=== PATIENT | male | born 1965 | race Caucasian/White ===

== ENCOUNTER 2019-10-05 06:20 | Emergency (ER) | payer OTHER ==
[2019-10-05 06:26] VITALS: BP 153/91; PULSE 80; TEMP 98.1; BMI 24.3
[2019-10-05] MEDS ORDERED: DIPHTH,PERTUSS(ACELL),TET 0.5 ML DISP.SYRIN IM ONE ×2 (06:31→06:46)
--- NOTE | 2019-10-05 06:33 | PDOC ---
Attending Attestation - Resident Resident Name: NeyAndrésTaj - ED Attending Attestation I have performed the following: I have examined & evaluated the patient, The case was reviewed & discussed with the resident, I agree w/resident's findings & plan - HPI HPI: 10/05/19 06:31 see resident hpi - Physicial Exam PE: 10/05/19 06:32 see resident exam - Medical Decision Making 10/05/19 06:32 54-year-old male status post traumatic amputation of the distal left fourth finger with a circular saw We will transfer to trauma center for hand consultation X-rays, tetanus and wound cleansing
--- NOTE | 2019-10-05 06:42 | PDOC ---
History of Present Illness - General Chief Complaint: Injury Stated Complaint: INJURY,FINGER Time Seen by Provider: 10/05/19 06:29 - History of Present Illness Initial Comments: 10/05/19 06:38 54 yo M with no sig pmh, left hand dominant, who p/w left 4th distal phalanx amputation. Patient reports left distal ring finger amputation with circular saw at approximately 6:00 AM this morning. Denies other injury sustained. Does not recall prior tetanus. Not on AC. Patient has detached fingertip present at bedside. Patient denies OLIVARES, vision change, palpitations, cough, wheezing, orthopena, PND, leg swelling/pain, N/V, F,C, CP, SOB, urinary complaints, hematuria, BPR, abdominal pain, diarrhea, constipation, lightheadedness, weakness, sensory changes. PMHx: as noted above ROS: as noted SHx: Denies Etoh, IVDA, tobacco use Allergies: NKDA Past History - Past Medical History Allergies/Adverse Reactions: Allergies Allergy/AdvReac Type Severity Reaction Status Date / Time No Known Allergies Allergy Verified 10/05/19 06:26 COPD: No - Immunization History Td Vaccination: Yes - Psycho Social/Smoking Cessation Hx Smoking History: Never smoked Review of Systems - Review of Systems Comments:: 10/05/19 06:42 GENERAL/CONSTITUTIONAL: No fever or chills. No weakness. HEAD, EYES, EARS, NOSE AND THROAT: No change in vision. No ear pain or discharge. No sore throat. CARDIOVASCULAR: No chest pain or shortness of breath RESPIRATORY: No cough, wheezing, or hemoptysis. GASTROINTESTINAL: No nausea, vomiting, diarrhea or constipation. GENITOURINARY: No dysuria, frequency, or change in urination. MUSCULOSKELETAL: + left 4th digit amputation. No joint or muscle swelling or pain. No neck or back pain. SKIN: No rash NEUROLOGIC: No headache, vertigo, loss of consciousness, or change in strength/sensation. ENDOCRINE: No increased thirst. No abnormal weight change HEMATOLOGIC/LYMPHATIC: No anemia, easy bleeding, or history of blood clots. ALLERGIC/IMMUNOLOGIC: No hives or skin allergy. *Physical Exam - Vital Signs Last Vital Signs Temp Pulse Resp BP Pulse Ox 98.1 F 80 18 153/91 97 10/05/19 06:24 10/05/19 06:24 10/05/19 06:24 10/05/19 06:24 10/05/19 06:24 - Physical Exam 10/05/19 06:43 GENERAL: Awake, alert, and fully oriented, in no acute distress HEAD: No signs of trauma, normocephalic, atraumatic EYES: PERRLA, EOMI, sclera anicteric, conjunctiva clear ENT: Auricles normal inspection, hearing grossly normal, nares patent, oropharynx clear without exudates. Moist mucosa NECK: Normal ROM, supple, no lymphadenopathy, JVD, or masses LUNGS: No distress, speaks full sentences, clear to auscultation bilaterally HEART: Regular rate and rhythm, normal S1 and S2, no murmurs, rubs or gallops, peripheral pulses normal and equal bilaterally. ABDOMEN: Soft, nontender, normoactive bowel sounds. No guarding, no rebound. No masses EXTREMITIES : + Left distal 4th phalanx amputation distal to DIP. Absent visualized retained foreign body or debris. strength intact proximal to DIP. Otherwise Normal inspection, Normal range of motion, no edema. No clubbing or cyanosis. Palpable and symmetric 2+ peripheral pulses throughout. NEUROLOGICAL: Cranial nerves II through XII grossly intact. Normal speech, normal gait, no focal sensorimotor deficits SKIN: Warm, Dry, normal turgor, no rashes or lesions noted Medical Decision Making - Medical Decision Making 10/05/19 06:42 54 yo M with no sig pmh, left hand dominant, who p/w left 4th distal phalanx amputation. Vitals wnl, AF, A&Ox3. Physical exam notable for + Left distal 4th phalanx amputation distal to DIP. Absent visualized retained foreign body or debris. strength intact proximal to DIP. Otherwise Normal inspection, Normal range of motion, no edema. No clubbing or cyanosis. Palpable and symmetric 2+ peripheral pulses throughout. Bleeding controlled, bone not exposed. Absent crush injury. LUE neurovasculalry intact. Patient likely to be transferred to outside facility for possible reimplantation vs. revision amputation, as deter mined by hand/plastic surgery consult services. Will obtain xray provide tetanus ppx.,and analgesic control. Ed Course: 10/05/19 06:47 Boostrix, Ancef, Morphine Patient endorsed to Dr. Castaneda at [facility] Patient agrees/consents to transfer to [facility] Discharge - Discharge Information Problems reviewed: Yes Clinical Impression/Diagnosis: Traumatic amputation of left ring finger Amputation finger Qualifiers: Encounter type: initial encounter Qualified Code(s): S68.119A - Complete traumatic metacarpophalangeal amputation of unspecified finger, initial encounter Condition: Stable Disposition: TRANSFER ACUTE CARE/OTHER HOSP - Follow up/Referral - Patient Discharge Instructions - Post Discharge Activity
[2019-10-05] MEDS ORDERED: CEFAZOLIN 1 GM in DEXTROSE 5%-WATER - 50 ML IVPB ONE (06:45)
[2019-10-05] MEDS ORDERED: CEFAZOLIN 1 GM/D5W 1 GM/50 ML BAG ONE (06:46)
[2019-10-05] MEDS ORDERED: ACETAMINOPHEN 1000 MG/100 ML VIAL (NON FORMULARY) IVPB ONE (06:48)
[2019-10-05] MEDS ORDERED: morphine CARPU-JECT 2 MG/1 ML DISP.SYRIN SQ ONE (06:51)
[2019-10-05] MEDS ORDERED: MORPHINE SULFATE 2 MG/ML VIAL ONE (06:53)
[2019-10-05 07:45] LABS: BASO % 0.8 % (0-2.0); EOS % 1.4 % (0-4.5); HEMATOCRIT 43.8 % (35.4-49); HEMOGLOBIN 15.4 GM/dL (11.7-16.9); LYMPH % 25.3 % (8-40); MCH 30.9 pg (25.7-33.7); MCHC 35.2 g/dl (32.0-35.9); MEAN PLT VOLUME 8.9 fl (7.5-11.1); MONO % 9.2 % (3.8-10.2); NEUT % 63.3 % (42.8-82.8); PLATELET COUNT 227 K/MM3 (134-434); RBC 4.98 M/mm3 (4.00-5.60); RDW 12.8 % (11.9-15.9); WHITE BLOOD COUNT 6.2 K/mm3 (4.0-10.0)
[2019-10-05 08:02] LABS: BILIRUBIN,TOTAL 0.8 mg/dL (0.2-1); BLOOD UREA NITROGEN 17.5 mg/dL (7-18); CALCIUM 9.7 mg/dL (8.5-10.1); TOT PROT 7.3 g/dl (6.4-8.2)
[2019-10-05 08:19] LABS: INR 0.93 (0.83-1.09)
== END 2019-10-05 07:47 | disposition short-term general hospital (02) ==
LOC: JER 06:20
PROC: 3E0234Z Introduction of Serum, Toxoid and Vaccine into Muscle, Percutaneous Approach (ICD-10-PCS; principal; 2019-10-05)
PROC: 3E03329 Introduction of Other Anti-infective into Peripheral Vein, Percutaneous Approach (ICD-10-PCS; 2019-10-05)
PROC: 3E023NZ Introduction of Analgesics, Hypnotics, Sedatives into Muscle, Percutaneous Approach (ICD-10-PCS; 2019-10-05)
DX: S68.115A Complete traumatic metacarpophalangeal amputation of left ring finger, initial encounter (principal); W31.2XXA Contact with powered woodworking and forming machines, initial encounter; Y93.89 Activity, other specified; Y92.89 Other specified places as the place of occurrence of the external cause
CPT/HCPCS: 36415; 73130-TC-LT-FY; 80053; 85025; 85610; 86850; 86900; 86901; 90715; 99284-25